=== PATIENT | female | born 2005 | race African-American/Black ===

== ENCOUNTER 2025-04-10 13:12 | Outpatient (AMB) | payer OTHER, SELFPAY ==
--- NOTE | 2025-04-10 13:14 | A.OFFPC_ITS ---
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 Transferring care from Dr Clair Whaley (Child and adolescent medicine ([place], [place])). Medical records have been requested and have not received. Inspector Eyeglass Frames Required: No Peer Counselor: Not Required per policy Accompanied by: Self / Same As Patient Allergies No Known Allergies Allergy (Verified 04/10/25 13:21) Medication List - Last Reconciled 04/10/25 by Lilo Shaw MD hydroxyzine pamoate 25 mg PO BEDTIME olanzapine 2.5 mg PO BEDTIME Tobacco use date assessed: 04/10/25 Dental Screening Dental Screen Date: 04/10/25 Did you have a dental visit in the last 12 months?: No Did you have a dental problem in the last 6 months where you did not have access to dental care?: No Was dental information given to patient?: No HPI HPI Comments History of Present Illness Details The patient is a 19 year old female with PMH of Graves disease, ALEXUS, anorexia nervosa presenting for establishment of care and management of her chronic conditions. She takes olanzapine for severe anxiety and hydroxyzine for sleep, which were prescribed in a prior program. The program was for an eating disorder, specifically anorexia. The patient feels her eating habits have worsened, and she currently consumes approximately 500 calories per day, primarily consisting of fruits. She reports that other foods cause stomach pain and that she has an uncontrollable urge to avoid certain foods due to a belief that there is something wrong with them. The patient was diagnosed with Graves' disease in December and is not currently on any medication for it. She was previously prescribed propranolol but developed a rash with itching that caused her skin to break. - The patient lives with her aunt and un radha. - She reports that her aunt is trying to understand her condition, but other family members are less supportive. - She reports her daily caloric intake i s around 500 calories, mainly from fruits. - For leisure, she plays video games. [facility] Surgical History (Updated 04/10/25 @ 13:22 by DIANE Blake) No pertinent past surgical history Family History (Updated 04/10/25 @ 13:22 by DIANE Blake) Other Substance use disorder Social History (Updated 04/10/25 @ 13:23 by DIANE Blake) Housing: House Alcohol intake: never Patient Tobacco Use Status: Never used Tobacco e-Cigarette/Vaping Use: Currently Using Second Hand Smoke Exposure: No Substance Use Type: Marijuana service: No Current occupational status: unemployed Cognitive needs: No Hearing needs: No Vision needs: Yes (Glasses) Questionnaire PHQ-9 Over the last 2 weeks, how often have you been bothered by any of the following problems? 1. Little interest or pleasure in doing things: more than half the days 2. Feeling down, depressed, or hopeless: more than half the days (Currently in treatment) 3. Trouble falling or staying asleep, or sleeping too much: nearly every day 4. Feeling tired or having little energy: several days 5. Poor appetite or overeating: nearly every day 6. Feeling bad about yourself - or that you are a failure or have let yourself or your family down: several days 7. Trouble concentrating on things, such as reading the newspaper or watching television: nearly every day 8. Moving or speaking so slowly that other people could have noticed. Or the opposite - being so fidgety or restless that you have been moving around a lot more than usual: several days 9. Thoughts that you would be better off or of hurting yourself in some way: several days Total score: 17 Depression Screening Interpretation: Positive Depression Screening Done: Yes Source: Developed by Drs. Donta Chacon, Kika Hernandez, Sang Aparicio and colleagues, with an educational jorge alberto from [employer]. Thrive Questionnaire Date Thrive assessed: 04/10/25 I am a: Patient What is your living situation today?: I have a steady place to live Within the past 12 months, did the food you bought not last and you didn't have the money to get more?: Never true Within the past 12 months, did you worry whether your food would run out before you got money to buy more?: Never true Do you have trouble paying for medicines?: No Do you have trouble getting transportation to medical appointments?: No Do you have trouble paying your heating and electricity bill?: No Do you have trouble taking care of your child, family member or friend?: No Do you have trouble with day-to-day activities such as bathing, preparing meals, shopping, managing finances, etc.?: No Are you currently unemployed and looking for a job?: No Are you interested in more education?: No Please select the resources that you would like help with: None Currently or been in a relationship where the following occur: No concerns reported THRIVE Score: 0 AUDIT C Alcohol Use Questionnaire (AUDIT-C) 1. How often do you have a drink containing alcohol?: Never Total Score: 0 ALEXUS-7 AMB Questionnaire ALEXUS-7 Date ALEXUS - 7 assessed: 04/10/25 Feeling nervous, anxious, or on edge: 2 = More than half the days (Currently in treatment) Not being able to stop or control worryin = Nearly every day Worrying too much about different things: 3 = Nearly every day Trouble relaxin = Nearly every day Being so restless that it is hard to sit still: 2 = More than half the days Becoming easily annoyed or irritable: 3 = Nearly every day Feeling afraid as if something awful might happen: 1 = Several days Total ALEXUS-7 score (0-4 normal; 5-9 mild; 10-14 moderate; 15-21 severe): 17 Source: Developed by Drs. Donta Chacon, Kika Hernandez, Sang Aparicio and colleagues, with an educational jorge alberto from [employer]. Review of Systems Const Details: As per HPI. Physical exam (Primary Care) Vital Signs: Last Vital Signs Temp 97.3 F 04/10/25 13:15 Pulse 128 H 04/10/25 13:15 BP 120/66 04/10/25 13:15 Pulse Ox 96 04/10/25 13:15 Oxygen Delivery Method Room Air 04/10/25 13:15 BMI result Body Mass Index 18.6 Tobacco/Smoking Status: Tobacco use Status Tobacco use date assessed 04/10/25 04/10/25 13:26 Patient Tobacco Use Status Never used Tobacco 04/10/25 13:26 e-Cigarette/Vaping Use Currently Using 04/10/25 13:26 PHQ-9: PHQ-9 Score PHQ-9: Total score 17 04/10/25 13:26 Depression Screening Interpretation: Positive Thrive Assessment: Date of Thrive Assessment Date Thrive assessed 04/10/25 04/10/25 13:14 Currently or been in a relationship where the following occur: No concerns reported Const Other: Pertinent findings are in BOLD GENERAL APPEARANCE NAD, activity normal for age, well developed/ well nourished, no cyanosis, pallor, or diaphoresis. EYES lids/conjunctiva normal. EARS/NOSE/THROAT Mucous membranes moist, nares normal, lips/teeth normal uvula midline without oral pharyngeal erythema, exudate or swelling TMs normal bilaterally. No lymphangitis/lymphedema. HEAD/NECK normocephalic atraumatic, no facial trauma, neck is supple. Enlarged thyroid. RESPIRATORY respiratory effort normal, speaks in full sentences, no tripod position, no accessory muscle use. Lungs clear to auscultation without rhonchi, wheezes, rales CARDIAC Regular rhythm, no edema. Tachycardia. ABDOMINAL Soft, ND/NT. No evidence of fluid wave. No pulsatile masses on exam, rebound tenderness, Jefferson sign or pain over Mcburney's point. MUSCLES/EXTREMITIES No abnormal range of motion, no swelling. SKIN Warm, pink and dry. No rashes, dermatoses, petechiae or lesions. NEUROLOGICAL Speech is clear and appropriate. Normal level of consciousness. Gait and coordination are normal. 5/5 strength in all extremities. Resting tremor. PSYCH Normal mood and affect. Judgement/competence is appropriate Coding Level of Care Code New Pt Level 4 (78797) Diagnoses Eating disorder F50.9 Anxiety F41.9 Graves disease E05.00 Time Spent (min) 45 Assessment & Plan Assessment & Plan (1) Eating disorder: Code(s): F50.9 - Eating disorder, unspecified Category: Medical Plan: - The patient's olanzapine and hydroxyzine prescriptions will be continued. - An urgent referral will be made to psychiatry at [facility] for continued management. (2) Anxiety: Code(s): F41.9 - Anxiety disorder, unspecified Category: Medical Plan: Same as under Eating disorder. Graves disease might be contrinuting to symptoms so we will address underlying causes. Denies SI or HI. Advised the patient to seek immediate help if she feels in danger, or gets ideas of hurting herself. (3) Graves disease: Code(s): E05.00 - Thyrotoxicosis with diffuse goiter without thyrotoxic crisis or storm Category: Medical Plan: - The patient's tachycardia, anxiety, and weight loss are likely attributable to her untreated Graves' disease. - Metoprolol tartrate 25 mg twice daily will be initiated to manage her high heart rate. The patient was advised to start metoprolol once per day and monitor for any rash symptoms. She was instructed to call our clinic in case she develops rash. - Based on current data and Ashley-Wartofsky Point Scale (BWPS) for Thyrotoxicosis: The patient is less likely to have thyropid storm at this time. We will update the scale with more data when available. - A stat referral will be sent to endocrinology for management of her Graves' disease. - The following diagnostics will be ordered: TSH, T4, Thyroid peroxidase antibody, Thyroid ; an EKG; and a thyroid ultrasound. - Follow-up will occur in one week to assess her response to the new medication. Plan I discussed with the patient that her untreated Graves' disease is likely a significant contributor to her symptoms of anxiety, weight loss, and high heart rate. We discussed initiating metoprolol, which is in the same class as propranolol which previously caused her a rash, and I advised her to start with a lower frequency to monitor for any adverse reactions before increasing to the full dose. I emphasized the importance of completing her lab work and EKG today to ensure her safety. I informed her of the urgent referrals to psychiatry and endocrinology for comprehensive care. I encouraged her to communicate with her family for support and reassured her that the clinical team is here to support her. The patient confirmed she does not have any current suicidal or homicidal ideation, and I provided return precautions. Orders: Orders Comprehensive Met. Panel Today Z00.00 - Encounter for general adult medical examination without abnormal findings Vitamin D 25-OH Total Today Z00.00 - Encounter for general adult medical examination without abnormal findings HIV Ab/Ag Today Z00.00 - Encounter for general adult medical examination without abnormal findings TSH reflex Free T4 Today E05.00 - Thyrotoxicosis with diffuse goiter without thyrotoxic crisis or storm, Z00.00 - Encounter for general adult medical examination without abnormal findings US thyroid Today E05.00 - Thyrotoxicosis with diffuse goiter without thyrotoxic crisis or storm, Z00.00 - Encounter for general adult medical examination without abnormal findings Magnesium Today Z00.00 - Encounter for general adult medical examination without abnormal findings ECG 12 lead EKG Today F41.9 - Anxiety disorder, unspecified NM thyroid w uptake Today E05.00 - Thyrotoxicosis with diffuse goiter without thyrotoxic crisis or storm Complete Blood Count no Diff Today Z00.00 - Encounter for general adult medical examination without abnormal findings Lipid Panel Today Z00.00 - Encounter for general adult medical examination without abnormal findings IRON PROFILE Today Z00.00 - Encounter for general adult medical examination without abnormal findings Vitamin B12 and Folate Today D64.9 - Anemia, unspecified, Z00.00 - Encounter for general adult medical examination without abnormal findings Hemoglobin A1c Today Z00.00 - Encounter for general adult medical examination without abnormal findings Hepatitis C Antibody Reflex Today Z00.00 - Encounter for general adult medical examination without abnormal findings Thyroid Peroxidase Antibodies Today E05.00 - Thyrotoxicosis with diffuse goiter without thyrotoxic crisis or storm, Z00.00 - Encounter for general adult medical examination without abnormal findings Thyroid Stimulating Immunoglob Today E05.00 - Thyrotoxicosis with diffuse goiter without thyrotoxic crisis or storm, Z00.00 - Encounter for general adult medical examination without abnormal findings Referrals Psychiatry Referral F50.00 - Anorexia nervosa, unspecified, F50.9 - Eating disorder, unspecified Endocrinology Referral E05.00 - Thyrotoxicosis with diffuse goiter without thyrotoxic crisis or storm Medications: New olanzapine 2.5 mg PO BEDTIME 30 tabs 3RF hydroxyzine pamoate 25 mg PO BEDTIME 30 caps 3RF metoprolol tartrate 25 mg PO BID 60 tabs 3RF
--- OUTSIDE RECORDS SUMMARY | 2025-04-10 13:14 | XMS_ITS | Encounter Summary ---
Author Organization [facility] Address [address] [place] [id number] Phone Care Team Providers Care Brine Room Laborer Name Role Phone Unavailable Primary Care Provider Unavailabl e Reason for Visit * Reason Onset Date Comments ED record review - ADMIT to PICU 01/04/2025 Encounter Details Date Type Department Care Team (Late st Contact Info) Description 01/04/2025 Telephone [facility] - [place] [address] [place] [address] Clair Jhaveri MD [address] [place] [address] ED record review - ADMIT to PICU Social History Tobacco Use Types Packs/Day Years Used Date Smoking Tobacco: Never Smokeless Tobacco: Never Hunger/Food Answer Date Recorded In the last 12 months, did y ou or your family ever eat less than you felt you should because there wasn't enough money for food? No 09/07/2023 Stable Housing Answer Date Recorded Are you worried that in the next 2 months you may not have stable housing? No 09/07/2023 Transportation Concerns Answer Date Rec orded In the last 12 months, have you or your family ever had to go without healthcare because you didn't have a way to get there? No 09/07/2023 Hazards in Home Answer Date Recorded Think about the place you li ve. Do you have problems with any of the following? Pests (mice or roaches), mold, no/not working smoke detectors, water leaks, no window guards. No 2023 Financing Utilities Answer Date Recorde d In the last 12 months, has t he electric, gas, oil, or water company threatened to shut off your services in your home? No 09/07/2023 Safety at Home Answer Date Recorded Are you or your family worried about feeling saf e in your home? No 09/07/2023 Outside Support Answer Date Recorded Do you feel that you need mo re support from other people or programs to help you care for yourself or your family? No 09/07/2023 Understanding Health Concerns Answer Da te Recorded Do you need help understandi ng your or your child's healthcare needs (diagnosis, medications, plan, etc.)? No 09/07/2023 Financing Health Concerns Answer Date R ecorded In the last 12 months, was t here a time when your child needed to see a doctor or get medications or supplies but could not because of cost? No 09/07/2023 Missing School or Work Answer Date Mazin rded Did you or your child miss s chool or work because of a health problem that could have been avoided? No 09/07/2023 Child Education Answer Date Recorded Do you have concerns about y our/your child's learning or behavior in school, preschool, or daycare? No 09/07/2023 Comments Unknown Sex and Gender Information Value Date Recorded Sex Assigned at Not on file Legal Sex Female 6:37 PM EDT Gender Identity Female 02/28/2021 7:29 AM EST Sexual Orientation Straight 02/04/2020 10 :54 AM EDT documented as of this encounter Miscellaneous Notes * Telephone Encounter - Jeannine Coats LPN - 01/04/2025 9:34 AM EDT Patient admitted: 01/03/25 Presenting Symptoms: chest palpitations Diagnosis: palpitations Medications prescribed: 1L fluids in ER Additional information: - Consult done with endocrinology, Dr. Cates who advised patient be admitted and will give tx recommendations. -Labs with potential concern for hyperthyroid, possible thyroid storm. TSH below assay, free T-46.38 -ultrasound does not have have any obv. Reduced ejection fraction though she has some scattered B-lines to suggest possibly some mild edema which would be consistent with her symptoms. Does not have obvious right heart strain. Clinical update: will await discharge for update Chart forwarded to: PCP for review as FYI Original document is in media documented in this encounter Plan of Treatment Not on file documented as of this encounter Goals Goal Patient Goal Type Associated Problems Recent Progress Patient-Stated? Author Transition to adult provider Lifestyle Lety Murillo Note: 10/31/24 still has [employer] Pt needs to change insurance with [facility] first. 01/02/23 Pat's PCP doesn't accept [facility]. Gave [facility] new pt line to call and schedule [phone]. Need to change [facility] to [facility]. [facility] had appts in June 2024. Pat to call and get back to us for next steps. AK spoke to Pat who wants to see if Neal can go to her PCP office. Patient will have/get mental health support Care Plan Patient/caregiver requires assistnace schuduling behavioral health appointments Lety Murillo Patient will establish with Adult PCP Care Plan Patient needs to connect with adult PCP No Lety Zacarias documented as of this encounter Visit Diagnoses Not on filedocumented in this encounter Additional Health Concerns Active Problems Noted Date Diagnosed Date Patient/caregiver requires a ssistnace schuduling behavioral health appointments 04/21/2022 Patient needs to connect with adult PCP 12/08/19 24 documented as of this encounter
--- OUTSIDE RECORDS SUMMARY | 2025-04-10 13:14 | XMS_ITS | Encounter Summary ---
Author Organization [facility] Address [address] [place] [address] Phone Care Team Providers Care Line Supervisor Name Role Phone Unavailable Primary Care Provider Unavailabl e Encounter Details Date Type Department Care Team (Late st Contact Info) Description 11/04/2024 Telephone Pediatric [facility] Ad[facility]cent Medicine - [place] [address] [place] [address] Clair Jhaveri MD [address] [place] [address] Social History Tobacco Use Types Packs/Day Years [...] AM EDT documented as of this encounter Plan of Treatment Not on file documented as of this encounter Goals Goal Patient Goal Type Associated Problems Recent Progress Patient-Stated? Author Transition to adult provider Lifestyle No Lety Zacarias Note: 10/31/24 still has [facility] Pt needs to change insurance with [facility] first. 01/02/23 Pat's PCP doesn't accept [facility]. Gave [facility] new pt line to call and schedule [phone]. Need to change [facility] to [facility]. [place] had appts in June 2024. Pat to call and get back to us for next steps. AK spoke to Pat who wants to see if Neal can go to her PCP office. Patient will have/get mental health support Care Plan Patient/caregiver requires assistnace schuduling behavioral health appointments No Lety Zacarias Patient will establish with Adult PCP Care Plan Patient needs to connect with adult PCP No Lety Zacarias documented as of this encounter Visit Diagnoses Diagnosis Dysmenorrhea documented in this encounter Additional Health Concerns Active Problems Noted Date Diagnosed Date Patient/caregiver requires a ssistnace [facility] behavioral [facility] appointments 04/21/2022 Patient needs to connect with adult PCP 12/08/19 24 documented as of this encounter
--- OUTSIDE RECORDS SUMMARY | 2025-04-10 13:14 | XMS_ITS | Clinical Summary ---
Author Organization [facility] Address [address] [place] [phone] Phone Care Team Providers Care Advice Nurse Name Role Phone Unavailable Primary Care Provider Unavailabl e Allergies No known active allergies Medications sertraline 100 MG tabletIndication s:Depression, unspecified depression type Take 1.5 tablets (150 mg total) by mouth every morning. 135 tablet 07/14/2023 Active naproxen sodium 275 MG tabletIndication s:Dysmenorrhea Take 2 tabs at first sign of cramps, then 1 tab po every 8 hrs until cramps subside 60 tablet 2 09/07/2023 Active Active Problems Patient Care Coordination No te Formatting of this note migh t be different from the original. Therapist- Tereza Kim [phone] I[facility]- [facility] Problem Noted Date Diagnosed Date Generalized anxiety disorder 07/08/2023 Deliberate self-cutting 10/21/2021 Severe episode of recurrent major depressive disorder, without psychotic features 10/21/2021 Anorexia nervosa 09/03/2021 Overview (06/15/2023): Initial Dr. Andrews appt 04/08/23. Pt seen for phos supplementation for the following few days. At recheck visit on 04/12 - pt found to be down more wt, admitted to [facility] on 06/13 for medical stabilization. Pt was both restricting calories as well as purging. At time of [facility] admit, pt had low phos that needed stabilizing. Assessment & Plan (08/17/2023 11:05 PM EDT): Pt had been stable and regained wt, holding at her previous wt and generally seemed in a good place upon re-entry to school. Now is sliding back into old behaviors, wt is down 2# from a month ago. Will contact [facility] Eating disorder program. Assessment & Plan (06/15/2023 4:29 PM EST): Pt completed inpt stay at [facility] then did inpatient at [facility] 04/19-05/07/23. She was transitioned to [facility] from home - that lasted until 06/08. She was not participating so they unenrolled her. She is doing well, back to school this week, wt is increasing. Still orthostatic but feeling well and labs normal. Attention deficit disorder 03/26/2021 Overview (03/26/2021): Diagnosed as inpt 03/08- started on Concerta. PTSD (post-traumatic stress disorder) 03/26/2021 Counseling and coordination of care 01/26/2021 Resolved Problems Problem Noted Date Diagnosed Date Resolved Date Depression 03/26/2021 10/21/2021 Overview (03/26/2021): Pt officially diagnosed. Has been inpt 01/06 and 03/08, did PHP 02/05. Currently receiving meds through [facility] on Prazosin and Sertraline. Has 2 therapists. Recurrent major depressive d isorder, in partial remission 01/10/2019 02/04/2020 Encounters Date Type Department Care Team Description 03/05/2025 Erroneous Telephone Encounter Pediatric And Adolescent Medicine - [address] [address] Clair Jhaveri MD 02/01/2025 5:51 PM EDT - 02/01/2025 6:46 PM EDT Emergency [facility] - Patient Ping from Last 3 Months Immunizations Immunization Administration Dates Next Due DTaP 5 07/22/2010, 0,01/10/2006,11/16,2005 HPV Vaccine 9 Valent 01/10/2019,12/14/2017 Hep A, ped/adol 05/19/2009,10/10/2006 Hep B, ped/adol 01/10/2019, 6,2005,10/07,2005 Hib (PRP-T) 05/19/2009, 6,2005,10/07 IPV 07/22/2010, 0,01/10/2006,10/07 Influenza, injectable, quadr ivalent, preservative free 03/26/2021,02/04/2020,01/10/2019 Influenza, injectable, triva lent, preservative free 02/12/2010,05/24/2006 MMR 06/18/2010,10/10/2006 Meningococcal B Trumenba 09/07/2023 Meningococcal Conj (Menactra) MCV4P 10/18/2016 Meningococcal Conj (Menveo) MCV4O 07/22/2022 Pneumococcal Conjugate 05/19/2009,01/10/2006, Tdap 10/18/2016 Varicella 06/18/2010,10/10/2006 Family History Medical History Relation Name Comments Diabetes Father Diabetes Maternal Grandmother Hyperlipidemia Maternal Grandmother Hypertension Maternal Grandmother Alcoholism Mother Relation Name Status Comments Father Maternal Grandmother Mother Social History Tobacco Use Types Packs/Day Years [...] Orientation Straight 02/04/2020 10 :54 AM EDT Last Filed Vital Signs Vital Sign Reading Time Taken Comments Blood Pressure 104/62 11/09/2023 2:47 PM EDT Pulse 92 11/09/2023 2:47 PM EDT Temperature 36.7 C (98 F) 11/09/2023 2:22 PM EDT Respiratory Rate 18 11/09/2023 2:22 PM EDT Oxygen Saturation 98% 11/09/2023 2:47 PM EDT Inhaled Oxygen Concentration - - Weight 58.6 kg (129 lb 4 oz) 11/09/2023 2:22 PM EDT Height 173.3 cm (5' 8.23 ) 11/09/2023 2:22 PM ED T Body Mass Index 19.52 11/09/2023 2:22 PM EDT Body Mass Index Percentile 25.04% 11/09/2023 2:2 2 PM EDT Growth Chart: CDC (Girls, 2- 20 Years) Plan of Treatment Health Maintenance Due Date Last Done Comments Men B Vaccine (2 of 2 - Trum enba SCDM 2-dose series) 03/09/2024 09/07/2023 Influenza Vaccines (#1) 2024 03/26/20 21, 02/04/2020, 01/10/2019, Additional history exists COVID-19 Vaccine (3 - 2024-2 6 season) 2024 09/20/2020, 08/30/2020 DTaP,Tdap,and Td Vaccines (7 - Td or Tdap) 10/18/2026 10/18/2016, 07/22/2010, 05/19/2009, Additional history exists HIB Vaccines Completed 05/19/2009, 12/18, 2005, Additional history exists Hepatitis A Vaccines Completed 05/19/2009, 10/11/19 07 Pneumococcal Vaccine Completed 05/19/2009, 01/10/2006, 2005 MMR Vaccines Completed 06/18/2010, 10/10/2006 Varicella Vaccines Completed 06/18/2010, 10/10/2006 IPV Vaccines Completed 07/22/2010, 04/2009, 01/10/2006, Additional history exists HPV Vaccines Completed 01/10/2019, 12/14/2017 Hepatitis B Vaccines Completed 01/10/2019, 01/10/2006, 2005, Additional history exists Meningococcal Vaccine Completed 07/22/2022, 017 Goals Goal Patient Goal Type Associated Problems Recent Progress Patient-Stated? Author Transition to adult provider Lifestyle No Lety Zacarias Note: 10/31/24 still has [facility] Pt needs to change insurance with [facility] first. 01/02/23 Pat's PCP doesn't accept [facility]. Gave [facility] new pt line to call and schedule [phone]. Need to change [facility] to [facility]. [place] had appts in June 2024. Pat to [...] needs to connect with adult PCP No Rell, Lety Procedures * Due to [employer] law, this organization might not be sharing sensitive test results. Procedure Name Priority Date/Time Associated Diagnosis Comments CHLAMYDIA AND GONORRHEA, AMPLIFIED Routine 09/07/2023 3:15 PM EDT Routine screening for STI (sexually transmitted infection) from Last 3 Months or Most Recently Relevant to Health Maintenance Results * Due to [facility] law, this organization might not be sharing sensitive test results. * Chlamydia and Gonorrhoea, Amplified (09/07/2023 3:15 PM EDT) C trach MANNIE Negative Negative [facility] N gonorrhoeae MANNIE Negative Negative [facility] Urine (Urine) 09/07/2023 3:1 5 PM EDT 09/07/2023 Comment:Urine URINE Narrative [facility] - 09/09/2023 9:08 AM EDT Performed at: 01 - [facility] [address], [address], [place], [place] [id number] Supervisor Boarding: Colten Ruiz MD, Phone: [phone] Clair Jhaveri MD LAB MICROBIOLOGY - GENERAL ORDER KHALIF Final Result Performing Organization Address City/State/[facility] Co de Phone Number [facility] [address] [place] [address] from Last 3 Months or Most Recently Relevant to Health Maintenance Additional Health Concerns Active Problems Noted Date Diagnosed Date Patient/caregiver requires a ssistnace [facility] behavioral health appointments 04/21/2022 Patient needs to connect with adult PCP 12/08/19 24
--- OUTSIDE RECORDS SUMMARY | 2025-04-10 13:14 | XMS_ITS | Encounter Summary ---
Author Organization [facility] Address [address] [place] [id number] Phone Care Team Providers Care Press Clipper Name Role Phone Unavailable Primary Care Provider Unavailabl e Encounter Details Date Type Department Care Team (Late st Contact Info) Description 11/24/2010 Conversion Encounter Pediatric And Adolescent Medicine - [address] [address] Social History Tobacco Use Types Packs/Day Years Used Date Smoking Tobacco: Never Assessed Comments Unknown Sex and Gender Information Value Date Recorded Sex Assigned at Not on file Legal Sex Female 6:37 PM EDT Gender Identity Female 02/28/2021 7:29 AM EST Sexual Orientation Straight 02/04/2020 10 :54 AM EDT documented as of this encounter Plan of Treatment Not on file documented as of this encounter Visit Diagnoses Not on filedocumented in this encounter
--- OUTSIDE RECORDS SUMMARY | 2025-04-10 13:14 | XMS_ITS ---
Care Plan Created on: April 10, 2025 Neal Valles : 2005 Sex: Female Author Organization [facility] Address [address] [place] [address] Phone Care Team Providers Care Prize Jacker Name Role Phone Unavailable Primary Care Provider Unavailabl e Active Problems Patient Care Coordination No te Formatting of this note migh t be different from the original. Therapist- Tereza Kim [phone] IHT- Clair and Yue Problem Noted Date Diagnosed Date Generalized anxiety disorder 07/08/2023 Deliberate self-cutting 10/21/2021 Severe episode of recurrent major depressive disorder, without psychotic features 10/21/2021 Anorexia nervosa 09/03/2021 Overview (06/15/2023): Initial Dr. Andrews appt 04/08/23. Pt seen for phos supplementation for the following few days. At recheck visit on 04/12 - pt found to be down more wt, admitted to [facility] on 06/13 for medical stabilization. Pt was both restricting calories as well as purging. At time of [facility] admit, pt had low phos that needed stabilizing. Assessment & Plan (08/17/2023 11:05 PM EDT): Pt had been stable and regained wt, holding at her previous wt and generally seemed in a good place upon re-entry to school. Now is sliding back into old behaviors, wt is down 2# from a month ago. Will contact [facility] Eating disorder program. Assessment & Plan (06/15/2023 4:29 PM EST): Pt completed inpt stay at [facility] then did inpatient at [facility] 04/19-05/07/23. She was transitioned to [facility] from home - that lasted until [...] did PHP 02/05. Currently receiving meds through [facility] on Prazosin and Sertraline. Has 2 therapists. Recurrent major depressive d isorder, in partial remission 01/10/2019 02/04/2020 Additional Health Concerns Active Problems Noted Date Diagnosed Date Patient/caregiver requires a ssistnace schuduling behavioral health appointments 04/21/2022 Patient needs to connect with adult PCP 12/08/19 24 Goals Goal Patient Goal Type Associated Problems Recent Progress Patient-Stated? Author Transition to adult provider Lifestyle No Lety Zacarias Note: 10/31/24 still has [employer] Pt needs to change insurance with [facility] first. 01/02/23 Pat's PCP doesn't accept [facility]. Gave [facility] new pt line to call and schedule [phone]. Need to change [employer] to [facility]. [place] had appts in June 2024. Pat to [...] Patient needs to connect with adult PCP Lety Murillo Interventions Care Plan Interventions Intervention Entry Date Outcome Transition to Adult PCP 12/08/2023 Note: Related Goals and Interventions Goal Associated Intervent ions Patient will establish with Adult PCP Tr ansition to Adult PCP
--- OUTSIDE RECORDS SUMMARY | 2025-04-10 13:14 | XMS_ITS | Encounter Summary ---
Author Organization [facility] Address [address] [place] [address] Phone Care Team Providers Care Flat Screen Worker Name Role Phone Unavailable Primary Care Provider Unavailabl e Reason for Visit * Reason Comments Med Refill Encounter Details Date Type Department Care Team (Late st Contact Info) Description 11/03/2024 Refill Pediatric And Adolescent Medicine - [address] [address] Clair Jhaveri MD [address] [place] [id number] Dysmenorrhea Social History Tobacco Use Types Packs/Day Years [...] encounter Miscellaneous Notes * Telephone Encounter - Kerry WinterTISH - 11/05/2024 5:34 PM EDT Refill requested for Anasty???s: Naproxen 275 mg Refill request source: [facility] This medication was last refilled on 09/14/24. Last medication check or well visit: 09/07/23 Next appointment scheduled on none. An office visit is not recommended. If visit recommended, message sent to appointment pool. [facility] - [place], [place] - [address] [facility] [id number] [id number] - [place], [place] - [address] [facility] [id number] PCP: Clair Jhaveri MD documented in this encounter Plan of Treatment Not on file documented as of this encounter Goals Goal Patient Goal Type Associated Problems Recent Progress Patient-Stated? Author Transition to adult provider Lifestyle Lety Murillo Note: 10/31/24 still has [employer] Pt needs to change insurance with [facility] first. 01/02/23 Pat's PCP doesn't accept [facility]. Gave [facility] new pt line to call and schedule [phone]. Need to change [employer] to [facility]. [place] had appts in June 2024. Pat to call and get back to us for next steps. [place] spoke to Pat who wants to see if Neal can go to her PCP office. Patient will have/get mental health support Care Plan Patient/caregiver requires assistnace sch[facility] behavioral health appointments Lety Murillo Patient will establish with Adult PCP Care Plan Patient needs to connect with adult PCP No Lety Zacarias documented as of this encounter Visit Diagnoses Diagnosis Dysmenorrhea documented in this encounter Additional Health Concerns Active Problems Noted Date Diagnosed Date Patient/caregiver requires a ssistnace schudmaximo behavioral health appointments 04/21/2022 Patient needs to connect with adult PCP 12/08/19 24 documented as of this encounter
[2025-04-10 13:15] VITALS: BP 120/66; PULSE 128; TEMP 36.3; O2SAT 96; BMI 18.6
== END 2025-04-10 13:56 | disposition home or self-care (01) ==
LOC: HO.HMCH 13:12
PROVIDERS: Visit Provider Internal Medicine
DX: F50.9 Eating disorder, unspecified (principal); F41.9 Anxiety disorder, unspecified; E05.00 Thyrotoxicosis with diffuse goiter without thyrotoxic crisis or storm

== ENCOUNTER 2025-04-13 18:51 | Emergency (ER) | payer OTHER, SELFPAY ==
[2025-04-13 18:58] VITALS: BP 158/71; PULSE 123; RESP 18; TEMP 36.3; O2SAT 94; BMI 19.1
--- NOTE | 2025-04-13 19:01 | ED_ITS ---
HPI - General Adult General Chief complaint: Recheck/Abnormal Lab/Rx Stated complaint: abnormal labs Related Data Previous Rx's ?Medication ?Instructions ?Recorded hydroxyzine pamoate 25 mg capsule 25 mg PO BEDTIME #30 caps 04/10/25 metoprolol tartrate 25 mg tablet 25 mg PO BID #60 tabs 04/10/25 olanzapine 2.5 mg tablet 2.5 mg PO BEDTIME #30 tabs 1 06/11/24 Allergies Allergy/AdvReac Type Severity Reaction Status Date / Time No Known Allergies Allergy Verified 04/13/25 19:02 [facility] Past Medical History Surgical History (Updated 04/10/25 @ 13:22 by DIANE Blake) No pertinent past surgical history Family History Family History (Updated 04/10/25 @ 13:22 by DIANE Blake) Other Substance use disorder Social History Social History (Updated 04/10/25 @ 13:23 by DIANE Blake) Housing: House Alcohol intake: never Patient Tobacco Use Status: Never used Tobacco e-Cigarette/Vaping Use: Currently Using Second Hand Smoke Exposure: No Substance Use Type: Marijuana Advance Directives: No Advance Directives Information Provided: No service: No Current occupational status: unemployed Cognitive needs: No Hearing needs: No Vision needs: Yes (Glasses) Physical Exam ED Vital Signs: BMI result Body Mass Index 19.1 Course Course Course Narrative: CESIA, this is a rapid medical exam performed by Varun Quezada please refer to primary provider for complete H&P- 19-year-old female presents for evaluation of Graves disease. She reports that she was previously on methimazole and propranolol but stopped these medications about 2 months ago due to a side effect of rashes. She feels that her thyroid is acting up. Plan for labs including a TSH with reflex T4 Medical Decision Making Lab Data 04/13/25 19:46 04/13/25 19:46 Labs: Lab Results 04/13/25 Range/Units 19:46 WBC 7.0 (4.8-10.8) X10*3/uL RBC 4.42 (4.20-5.50) X10*6/uL Hgb 13.3 (12.0-16.0) g/dl Hct 39.6 (37.0-47.0) % MCV 89.6 (80.0-98.0) fL MCH 30.1 (27.0-33.0) pg MCHC 33.6 (31.0-35.0) g/dl RDW 12.6 (11.0-16.0) % Plt Count 339 (160-400) X10*3/uL MPV 9.1 L (9.4-12.3) fL Immature Gran % (Auto) 0.1 (0.0-0.4) % Neut % (Auto) 58.0 (45-73) % Lymph % (Auto) 26.6 (20-40) % [place] % (Auto) 8.3 (2-11) % Eos % (Auto) 6.6 H (0-4) % Baso % (Auto) 0.4 (0-2) % Lymph # (Auto) 1.9 (1.2-4.9) X10*3/uL [place] # (Auto) 0.6 (0.1-1.2) X10*3/uL Eos # (Auto) 0.5 H (0.0-0.4) X10*3/uL Baso # (Auto) 0.0 (0.0-0.2) X10*3/uL Abs Immat Gran (auto) 0.01 (0.00-0.03) X10*3/uL Absolute Neuts (auto) 4.1 (2.0-8.3) x10*3/uL Absolute Nucleated RBC 0.000 (0.0-0.012) X10*3/uL Nucleated RBC % (auto) 0.0 (0.0-0.2) /100WBC Sodium 139 (135-145) mmol/L Potassium 4.0 (3.3-5.1) mmol/L Chloride 108 (96-108) mmol/L Carbon Dioxide 22 (22-29) mmol/L Anion Gap 13 (12-20) BUN 14 (9-16) mg/dL Creatinine 0.54 (0.5-1.4) mg/dL Estim Creat Clear Calc 150.5 Estimated GFR > 60 Random Glucose 115 (60-115) mg/dL Calcium 9.3 (8.4-10.2) mg/dL Total Bilirubin 0.2 (0.0-1.0) mg/dL AST 41 H (5-31) U/L ALT 61 H (0-31) U/L Alkaline Phosphatase 122 H (39-117) U/L Total Protein 7.1 (6.5-8.0) g/dL Albumin 3.9 (3.5-5.0) g/dL TSH < 0.01 L (0.32-4.0) uIU/mL Free T4 2.19 H (0.71-1.85) ng/dL Discharge Plan Discharge Clinical Impression: Hyperthyroidism Patient Disposition: Left W/O Completing Treatment Prescriptions: No Action olanzapine 2.5 mg tablet 2.5 mg PO BEDTIME Qty: 30 3RF hydroxyzine pamoate 25 mg capsule 25 mg PO BEDTIME Qty: 30 3RF metoprolol tartrate 25 mg tablet 25 mg PO BID Qty: 60 3RF Discharge Date/Time: 04/13/25 23:07
[2025-04-13 19:52] LABS: Hematocrit 39.6 % (37.0-47.0); Hemoglobin 13.3 g/dl (12.0-16.0); Imm Gran Abs Auto 0.01 X10*3/uL (0.00-0.03); Imm Gran Pct Auto 0.1 % (0.0-0.4); Lymphocytes Absolute Auto 1.9 X10*3/uL (1.2-4.9); MANUAL DIFF FLAG NO; Mean Corpuscular HGB Conc 33.6 g/dl (31.0-35.0); Mean Corpuscular Hemoglobin 30.1 pg (27.0-33.0); Mean Corpuscular Volume 89.6 fL (80.0-98.0); NRBC Abs Auto 0.000 X10*3/uL (0.0-0.012); NRBC Pct Auto 0.0 /100WBC (0.0-0.2); Platelet Count 339 X10*3/uL (160-400); Red Blood Count 4.42 X10*6/uL (4.20-5.50); White Blood Count 7.0 X10*3/uL (4.8-10.8)
[2025-04-13 20:16] LABS: Alanine Aminotransferase 61 U/L (0-31); Albumin Level 3.9 g/dL (3.5-5.0); Alkaline Phosphatase 122 U/L (39-117); Anion Gap 13 (12-20); Aspartate Amino Transferase 41 U/L (5-31); Blood Urea Nitrogen 14 mg/dL (9-16); Calcium 9.3 mg/dL (8.4-10.2); Carbon Dioxide 22 mmol/L (22-29); Chloride 108 mmol/L (96-108); Creatinine Clr Calc Pharmacy 150.5; Estimated Glomerular Filt Rate > 60; Potassium 4.0 mmol/L (3.3-5.1); Sodium 139 mmol/L (135-145); Total Protein 7.1 g/dL (6.5-8.0)
[2025-04-13 21:08] LABS: Free T4 (Free Thyroxine) 2.19 ng/dL (0.71-1.85)
--- OUTSIDE RECORDS SUMMARY | 2025-04-13 23:05 | XMS_ITS | Clinical Summary ---
Author Organization [facility] Address [address] [place] [address] Phone Care Team Providers Care Noc Analyst Name Role Phone Unavailable Primary Care Provider [...] different from the original. Therapist- Tereza Kim [phone] IHT- Clair and Yue Problem Noted Date Diagnosed Date Generalized anxiety disorder 07/08/2023 Deliberate self-cutting 10/21/2021 Severe episode of recurrent major depressive disorder, without psychotic features 10/21/2021 Anorexia nervosa 09/03/2021 Overview (06/15/2023): Initial Dr. Andrews appt 04/08/23. Pt seen for phos supplementation for the following few days. At recheck visit on 04/12 - pt found to be down more wt, admitted to [facility] on 06/13 for medical stabilization. Pt was both restricting calories as well as purging. At time of [facility] admit, pt had low phos that needed stabilizing. Assessment & Plan (08/17/2023 11:05 PM EDT): Pt had been stable and regained wt, holding at her previous wt and generally seemed in a good place upon re-entry to school. Now is sliding back into old behaviors, wt is down 2# from a month ago. Will contact [facility] Eating disorder program. Assessment & Plan (06/15/2023 4:29 PM EST): Pt completed inpt stay at [facility] then did inpatient at [place] 04/19-05/07/23. She was transitioned to [facility] from home - that lasted until [...] did PHP 02/05. Currently receiving meds through [facility] on Prazosin and Sertraline. Has 2 therapists. Recurrent major depressive d isorder, in partial remission 01/10/2019 02/04/2020 Encounters Date Type Department Care Team Description 03/05/2025 Erroneous Telephone Encounter Pediatric And Adolescent Medicine - [address] [address] Clair Jhaveri MD 02/01/2025 5:51 PM EDT - 02/01/2025 6:46 PM EDT Emergency [facility] - Patient Ping from Last 3 [...] 09/07/2023 Missing School or Work Answer Date Maizn rded Did you or your child miss [...] 01/02/23 Pat's PCP doesn't accept [facility]. Gave [facility] new pt line to call and schedule [phone]. [facility] to [facility]. [place] had appts in June 2024. Pat to [...] needs to connect with adult PCP No Rlel, Lety Procedures * Due to [place] [employer] law, this organization might not be sharing sensitive test results. Procedure Name Priority Date/Time Associated Diagnosis Comments CHLAMYDIA AND GONORRHEA, AMPLIFIED Routine 09/07/2023 3:15 PM EDT Routine screening for STI (sexually transmitted infection) from Last 3 Months or Most Recently Relevant to Health Maintenance Results * Due to [facility] law, this organization might not be sharing sensitive test results. * Chlamydia and Gonorrhoea, Amplified (09/07/2023 3:15 PM EDT) C trach MANNIE Negative Negative [facility] N gonorrhoeae MANNIE Negative Negative [facility] Urine (Urine) 09/07/2023 3:1 5 PM EDT 09/07/2023 Comment:Urine URINE Narrative [facility] - 09/09/2023 9:08 AM EDT Performed at: 01 - [facility] [address], [address], [place], [place] [id number] Nitrocellulose Maker: Colten Ruiz MD, Phone: [phone] Clair Jhaveri MD LAB MICROBIOLOGY - GENERAL ORDER KHALIF Final Result Performing Organization Address City/State/[facility] Co de Phone Number [facility] [address] [place] [address] from Last 3 Months or Most Recently Relevant to Health Maintenance Additional Health Concerns Active Problems Noted Date Diagnosed Date Patient/caregiver requires a ssistnace [facility] behavioral [facility] appointments 04/21/2022 Patient needs to connect with adult PCP 12/08/19 24
--- OUTSIDE RECORDS SUMMARY | 2025-04-13 23:05 | XMS_ITS | Encounter Summary ---
Author Organization [facility] Address [address] [place] [address] Phone Care Team Providers Care Sex Worker Or Escort Name Role Phone Unavailable Primary Care Provider Unavailabl e Encounter Details Date Type Department Care Team (Late st Contact Info) Description 11/24/2010 Conversion Encounter Pediatric And Adolescent Medicine - [address] [address] Social History Tobacco Use Types Packs/Day Years [...]
--- OUTSIDE RECORDS SUMMARY | 2025-04-13 23:05 | XMS_ITS | Encounter Summary ---
Author Organization [facility] Address [address] [place] [address] Phone Care Team Providers Care Pastry Cook Apprentice Name Role Phone Unavailable Primary Care Provider Unavailabl e Reason for Visit * Reason Comments Med Refill Encounter Details Date Type Department Care Team (Late st Contact Info) Description 11/03/2024 Refill Pediatric And Adolescent Medicine - [address] [address] Clair Jhaveri MD [address] [place] [address] Dysmenorrhea Social History Tobacco Use Types Packs/Day [...] Anasty???s: Naproxen 275 mg Refill request source: [employer] This medication was last refilled on 09/14/24. Last medication check or well visit: 09/07/23 Next appointment scheduled on none. An office visit is not recommended. If visit recommended, message sent to appointment pool. [facility] - [place], [place] - [address] [facility] [address] [id number] [place], [place] - [address] [facility]. [facility] [address] PCP: Clair Jhaveri MD documented in this encounter Plan of Treatment Not on file documented as of this encounter Goals Goal Patient Goal Type Associated Problems Recent Progress Patient-Stated? Author Transition to adult provider Lifestyle Lety Murillo Note: 10/31/24 still has [facility] Pt needs to change insurance with [facility] first. 01/02/23 Pat's PCP doesn't accept [facility]. Gave [facility] new pt line to call and schedule [phone]. [facility]. [...]
--- OUTSIDE RECORDS SUMMARY | 2025-04-13 23:05 | XMS_ITS | Encounter Summary ---
Author Organization [facility] Address [address] [place] [address] Phone Care Team Providers Care Healthcare Manager Name Role Phone Unavailable Primary Care Provider Unavailabl e Encounter Details Date Type Department Care Team (Late st Contact Info) Description 11/04/2024 Telephone Pediatric And Adolescent Medicine - [place] [address] [place] [address] Clair Jhaveri MD [address] [place] [address] Social History Tobacco Use Types [...] No Lety Zacarias Note: 10/31/24 still has [facility] Pt needs to change insurance with [facility] first. 01/02/23 Pat's PCP doesn't accept [facility]. Gave [facility] new pt line to call and schedule [phone]. [facility]. [place] had appts in June 2024. Pat to [...]
--- OUTSIDE RECORDS SUMMARY | 2025-04-13 23:05 | XMS_ITS | Encounter Summary ---
Author Organization [facility] Address [address] [place] [address] Phone Care Team Providers Care Medical Radiation Dosimetrist Name Role Phone Unavailable Primary Care Provider Unavailabl e Reason for Visit * Reason Onset Date Comments ED record review - ADMIT to PICU 01/04/2025 Encounter Details Date Type Department Care Team (Late st Contact Info) Description 01/04/2025 Telephone Pediatric And Adolescent Medicine - [place] [address] [place] [address] Clair Jhaveri MD [address] [place] [address] ED record review - ADMIT to PICU [...] 01/02/23 Pat's PCP doesn't accept [facility]. Gave [facility] new pt line to call and schedule [phone]. [facility]. [place] had appts in June 2024. Pat to [...]
--- OUTSIDE RECORDS SUMMARY | 2025-04-13 23:05 | XMS_ITS ---
Care Plan Created on: April 13, 2025 Neal Valles : 2005 Sex: Female Author Organization [facility] Address [address] [place] [address] Phone Care Team Providers Care Display Card Writer Name Role Phone Unavailable Primary Care Provider Unavailabl e Active Problems Patient Care Coordination No te Formatting of this note migh t be different from the original. Therapist- Tereza Kim [phone] IHT- Clair and Yue Problem Noted Date Diagnosed Date Generalized anxiety disorder 07/08/2023 Deliberate self-cutting 10/21/2021 Severe episode of recurrent major depressive disorder, without psychotic features 10/21/2021 Anorexia nervosa 09/03/2021 Overview (06/15/2023): Initial Dr. Andrews appt 04/08/23. Pt seen for phos supplementation for the following few days. At recheck visit on 04/12 - pt found to be down more wt, admitted to [facility] on 06/13 for medical stabilization. Pt was both restricting calories as well as purging. At time of [facility] admit, pt had low phos that needed stabilizing. Assessment & Plan (08/17/2023 11:05 PM EDT): Pt had been stable and regained wt, holding at her previous wt and generally seemed in a good place upon re-entry to school. Now is sliding back into old behaviors, wt is down 2# from a month ago. Will contact [facility] Eating disorder program. Assessment & Plan (06/15/2023 4:29 PM EST): Pt completed inpt stay at [facility] then did inpatient at [place] 04/19-05/07/23. She was transitioned to [facility] from home - that lasted until 06/08. [...] did PHP 02/05. Currently receiving meds through [facility] on Prazosin and Sertraline. Has 2 therapists. [...] 01/02/23 Pat's PCP doesn't accept [facility]. Gave [facility] new pt line to call and schedule [phone]. [facility]. [place] had appts in June 2024. Pat to [...]
== END 2025-04-13 23:07 | disposition left against medical advice (07) ==
LOC: HO.ED 23:03
PROVIDERS: Physician Assistant; Emergency Provider Emergency Medicine; PCP Internal Medicine
DX: E05.90 Thyrotoxicosis, unspecified without thyrotoxic crisis or storm (principal)
CPT/HCPCS: 36415; 80053; 84439; 84443; 85025; 99281; 99283

== ENCOUNTER 2025-04-15 17:42 | Emergency (ER) | payer OTHER, SELFPAY ==
[2025-04-15 17:53] VITALS: BP 115/60; PULSE 93; RESP 18; TEMP 36.1; O2SAT 98; BMI 18.4
--- NOTE | 2025-04-15 17:55 | ED_ITS ---
HPI - General Adult General Chief complaint: General Medical Stated complaint: unstable heart rate Time Seen by Provider: 04/15/25 21:53 Source: patient, RN notes reviewed and old records reviewed Mode of arrival: ambulatory Limitations: no limitations History of Present Illness ED Provider: Damien STEVENS narrative: 19-year-old female with a past medical history significant for Graves disease presents for evaluation of hyperthyroidism. The patient reports that for the last 4 days she has noticed increased heart rate. She was seen by her primary doctor on [place], 5 days ago. She was started on metoprolol 25 mg b.i.d. pain She is also on methimazole 10 mg daily. She reports weight loss, increased heart rate and anxiety. She denies any chest pain, fevers, chills, cough, shortness of breath Related Data Previous Rx's ?Medication ?Instructions ?Recorded hydroxyzine pamoate 25 mg capsule 25 mg PO BEDTIME #30 caps 04/10/25 metoprolol tartrate 25 mg tablet 25 mg PO BID #60 tabs 04/10/25 olanzapine 2.5 mg tablet 2.5 mg PO BEDTIME #30 tabs 1 06/11/24 Allergies Allergy/AdvReac Type Severity Reaction Status Date / Time No Known Allergies Allergy Verified 04/15/25 17:55 Review of Systems 2 Constitutional: Constitutional: Denies body ache(s), Denies chills, Denies fever(s) and Denies frequent falls Eyes: Eyes: Denies irritation ENT: Denies vertigo Cardiovascular: Cardiovascular: Denies chest pain, Denies syncope, Reports rapid heart rate, Denies dyspnea and Denies dyspnea on exertion Respiratory: Respiratory: Denies dyspnea and Denies dyspnea on exertion Gastrointestinal: Gastrointestinal: Denies abdominal pain, Denies nausea and Denies vomiting Musculoskeletal: Musculoskeletal: Denies back pain Integumentary/Breasts: Skin/Breast: Denies rash Neurologic: Denies vertigo, Denies syncope and Denies frequent falls [facility] Past Medical History Surgical History (Updated 04/10/25 @ 13:22 by DIANE Blake) No pertinent past surgical history Family History Family History (Updated 04/10/25 @ 13:22 by DIANE Blake) Other Substance use disorder Social History Social History (Updated 04/10/25 @ 13:23 by LISA Blake Housing: House Alcohol intake: never Patient Tobacco Use Status: Never used Tobacco e-Cigarette/Vaping Use: Currently Using Second Hand Smoke Exposure: No Substance Use Type: Marijuana Advance Directives: No Advance Directives Information Provided: No Do you have a plan to hurt others: No Plan service: No Current occupational status: unemployed Cognitive needs: No Hearing needs: No Vision needs: Yes (Glasses) Physical Exam ED Vital Signs: Vital Signs - 24 hr 04/15/25 17:53 04/15/25 22:16 Temperature 97 F 97.9 F Pulse Rate 93 92 Respiratory Rate 18 17 Blood Pressure 115/60 135/65 Pulse Oximetry 98 98 Oxygen Delivery Method Room Air Room Air BMI result Body Mass Index 18.4 Const General: healthy appearing, comfortable, no acute distress, alert and awake Nutritional Appearance: thin Orientation/consciousness: patient oriented x3 HENMT Head: Yes normocephalic and Yes atraumatic Eyes Eyelids: Yes eyelids normal Conjunctivae: conjunctivae normal Sclerae: sclerae normal Corneas: corneas normal Pupils: Equal, round and reactive pupils present EOM: EOMs intact bilaterally Neck Neck: Yes full ROM Resp Effort & Inspection: normal respiratory effort, able to speak in complete sentences and not labored GI Inspection: No distended Palpation (GI): Soft to palpation, not firm, nontender, no guarding and not rigid Skin General skin exam: elasticity normal Neuro General: patient oriented x3 Cranial nerves: Yes Equal, round and reactive pupils present and Yes Bilaterally intact EOM present Cognition (Neuro): normal cognition Extrem Other: Moving all extremities well without any obvious deformities Course Course Course Narrative: Rapid medical examination performed in triage by Breann Marcum PA-C: Patient is a 19 year old female presenting to the emergency department with concerns of a graves flare. Patient states that she spoke with her PCP who wanted her to come to the ER to be evaluated for a possible grave's flare. Detailed physical exam and review of systems are deferred to the speech clinician. EKG, labs, swabs ordered. Patient placed back in the waiting room pending room availability and results. Medical Decision Making Medical Decision Making MDM Narrative: 19-year-old female presents for evaluation of fast heart rate. Her vital signs are within normal limits, she is not tachycardic. Her labs are reassuring, her TSH is undetectable but her T4 is elevated to 2.55. She is already appropriately treated with metoprolol and methimazole. She reports that she was referred to an senior financial reporting accountant and was able to talk them today but has not yet had an appointment. I do not see any indication to change her treatment plan at this time Differential Diagnosis Differential Diagnoses: The differential diagnosis associated with the presentation includes Hyperthyroidism Graves disease Anxiety Tachycardia Lab Data MDM Lab Attestation statement: I reviewed the patient's lab results. No leukocytosis or anemia. Normal platelet count. No electrolyte abnormalities warranting intervention. As above, before is elevated to 2.55 in the setting of the patient's known Graves disease 04/15/25 17:59 04/15/25 18:01 Labs: Lab Results 04/15/25 04/15/25 Range/Units 17:59 18:01 WBC 6.8 (4.8-10.8) X10*3/uL RBC 4.69 (4.20-5.50) X10*6/uL Hgb 14.1 (12.0-16.0) g/dl Hct 41.1 (37.0-47.0) % MCV 87.6 (80.0-98.0) fL MCH 30.1 (27.0-33.0) pg MCHC 34.3 (31.0-35.0) g/dl RDW 12.7 (11.0-16.0) % Plt Count 373 (160-400) X10*3/uL MPV 9.0 L (9.4-12.3) fL Immature Gran % (Auto) 0.1 (0.0-0.4) % Neut % (Auto) 43.9 L (45-73) % Lymph % (Auto) 42.7 H (20-40) % Nelson % (Auto) 10.7 (2-11) % Eos % (Auto) 2.3 (0-4) % Baso % (Auto) 0.3 (0-2) % Lymph # (Auto) 2.9 (1.2-4.9) X10*3/uL Nelson # (Auto) 0.7 (0.1-1.2) X10*3/uL Eos # (Auto) 0.2 (0.0-0.4) X10*3/uL Baso # (Auto) 0.0 (0.0-0.2) X10*3/uL Abs Immat Gran (auto) 0.01 (0.00-0.03) X10*3/uL Absolute Neuts (auto) 3.0 (2.0-8.3) x10*3/uL Absolute Nucleated RBC 0.000 (0.0-0.012) X10*3/uL Nucleated RBC % (auto) 0.0 (0.0-0.2) /100WBC Sodium 139 (135-145) mmol/L Potassium 4.4 (3.3-5.1) mmol/L Chloride 109 H (96-108) mmol/L Carbon Dioxide 22 (22-29) mmol/L Anion Gap 12 (12-20) BUN 11 (9-16) mg/dL Creatinine 0.52 (0.5-1.4) mg/dL Estim Creat Clear Calc 154.9 Estimated GFR > 60 Random Glucose 102 (60-115) mg/dL Calcium 10.2 D (8.4-10.2) mg/dL Magnesium 1.9 (1.6-2.6) mg/dL Total Bilirubin 0.2 (0.0-1.0) mg/dL AST 52 H (5-31) U/L ALT 80 H (0-31) U/L Alkaline Phosphatase 138 H (39-117) U/L Troponin I High Sens < 2.7 (<3.5-17.0) ng/L Total Protein 7.3 (6.5-8.0) g/dL Albumin 4.2 (3.5-5.0) g/dL TSH < 0.01 L (0.32-4.0) uIU/mL Free T4 2.55 H (0.71-1.85) ng/dL Influenza Type A (PCR) NEGATIVE (Negative) Influenza Type B (PCR) NEGATIVE (Negative) RSV RNA Qual (PCR) NEGATIVE (Negative) SARS-CoV-2 RNA (RT-PCR) NEGATIVE (Negative) Independent Interpretation I performed an independent interpretation of an: EKG Interpretation: Normal sinus rhythm with a rate of 91 beats minute. Discharge Plan Discharge Clinical Impression: Graves disease Patient Disposition: Home, Self-Care Instructions: Hyperthyroidism (ED) Additional Instructions: Your thyroid hormone level is elevated to 2.55. A normal level is 1.85. Continue the methimazole and metoprolol, follow up with your primary doctor and endocrinology when able Prescriptions: No Action olanzapine 2.5 mg tablet 2.5 mg PO BEDTIME Qty: 30 3RF hydroxyzine pamoate 25 mg capsule 25 mg PO BEDTIME Qty: 30 3RF metoprolol tartrate 25 mg tablet 25 mg PO BID Qty: 60 3RF Print Language: Nepalese
--- NOTE | 2025-04-15 17:56 | ECG_ITS ---
Test Reason : GRAVES Blood Pressure : */* mmHG Vent. Rate : 91 BPM Atrial Rate : 91 BPM P-R Int : 168 ms QRS Dur : 66 ms QT Int : 334 ms P-R-T Axes : 91 147 148 degrees QTcB Int : 410 ms Suspect limb lead reversal, interpretation assumes no reversal AGE AND GENDER SPECIFIC ECG ANALYSIS Normal sinus rhythm Lateral infarct , possibly acute ACUTE OR / STEMI Abnormal ECG No previous ECGs available Referred By: Breann Marcum Electronically Signed By:
[2025-04-15 18:13] LABS: MANUAL DIFF FLAG NO
[2025-04-15 18:14] LABS: Hematocrit 41.1 % (37.0-47.0); Hemoglobin 14.1 g/dl (12.0-16.0); Imm Gran Abs Auto 0.01 X10*3/uL (0.00-0.03); Imm Gran Pct Auto 0.1 % (0.0-0.4); Lymphocytes Absolute Auto 2.9 X10*3/uL (1.2-4.9); Mean Corpuscular HGB Conc 34.3 g/dl (31.0-35.0); Mean Corpuscular Hemoglobin 30.1 pg (27.0-33.0); Mean Corpuscular Volume 87.6 fL (80.0-98.0); NRBC Abs Auto 0.000 X10*3/uL (0.0-0.012); NRBC Pct Auto 0.0 /100WBC (0.0-0.2); Platelet Count 373 X10*3/uL (160-400); Red Blood Count 4.69 X10*6/uL (4.20-5.50); White Blood Count 6.8 X10*3/uL (4.8-10.8)
[2025-04-15 18:34] LABS: Alanine Aminotransferase 80 U/L (0-31); Albumin Level 4.2 g/dL (3.5-5.0); Alkaline Phosphatase 138 U/L (39-117); Anion Gap 12 (12-20); Aspartate Amino Transferase 52 U/L (5-31); Blood Urea Nitrogen 11 mg/dL (9-16); Calcium 10.2 mg/dL (8.4-10.2); Carbon Dioxide 22 mmol/L (22-29); Chloride 109 mmol/L (96-108); Creatinine Clr Calc Pharmacy 154.9; Estimated Glomerular Filt Rate > 60; Magnesium 1.9 mg/dL (1.6-2.6); Potassium 4.4 mmol/L (3.3-5.1); Sodium 139 mmol/L (135-145); Total Protein 7.3 g/dL (6.5-8.0)
[2025-04-15 18:45] LABS: Troponin-I High Sensitivity < 2.7 ng/L (<3.5-17.0)
[2025-04-15 19:04] LABS: Resp Syncy Virus RNA Qual PCR NEGATIVE (Negative); SARS COV2 PCR INHOUSE NEGATIVE (Negative)
[2025-04-15 20:46] LABS: Free T4 (Free Thyroxine) 2.55 ng/dL (0.71-1.85)
--- OUTSIDE RECORDS SUMMARY | 2025-04-15 21:46 | XMS_ITS | Encounter Summary ---
Author Organization [facility] Address [address] [place] [address] Phone Care Team Providers Care Cutter Helper Name Role Phone Unavailable Primary Care Provider Unavailabl e Encounter Details Date Type Department Care Team (Late st Contact Info) Description 11/04/2024 Telephone Pediatric And Adolescent Medicine - [place] [address] [place] [address] Clair Jhaveri MD [address] [place] [address] Social History Tobacco Use Types [...] No Lety Zacarias Note: 10/31/24 still has [facility] Pt needs to change insurance with [facility] first. 01/02/23 Pat's PCP doesn't accept [facility]. Gave [facility] new pt line to call and schedule [phone]. [facility] to [facility]. [place] had appts in June 2024. Pat to [...]
--- OUTSIDE RECORDS SUMMARY | 2025-04-15 21:46 | XMS_ITS | Encounter Summary ---
Author Organization [facility] Address [address] [place] [address] Phone Care Team Providers Care Dental Assistant Name Role Phone Unavailable Primary Care Provider Unavailabl e Encounter Details Date Type Department Care Team (Late st Contact Info) Description 11/24/2010 Conversion Encounter Pediatric And Adolescent Medicine - [address] [address] Social History Tobacco Use Types Packs/Day Years [...]
--- OUTSIDE RECORDS SUMMARY | 2025-04-15 21:46 | XMS_ITS | Encounter Summary ---
Author Organization [facility] Address [address] [place] [address] Phone Care Team Providers Care Erection Shop Supervisor Name Role Phone Unavailable Primary Care Provider Unavailabl e Reason for Visit * Reason Onset Date Comments ED record review - ADMIT to PICU 01/04/2025 Encounter Details Date Type Department Care Team (Late st Contact Info) Description 01/04/2025 Telephone Pediatric And Adolescent Medicine - [place] [address] [place] [address] Clair Jhaveri MD [address] [place] [address] ED record review - ADMIT to PICU [...] 01/02/23 Pat's PCP doesn't accept [facility]. Gave [facility] new pt line to call and schedule [phone]. [facility]. [place] had appts in June 2024. Pat to [...]
--- OUTSIDE RECORDS SUMMARY | 2025-04-15 21:46 | XMS_ITS | Encounter Summary ---
Author Organization [facility] Address [address] [place] [address] Phone Care Team Providers Care Historiography Professor Name Role Phone Unavailable Primary Care Provider Unavailabl e Reason for Visit * Reason Comments Med Refill Encounter Details Date Type Department Care Team (Late st Contact Info) Description 11/03/2024 Refill Pediatric And Adolescent Medicine - [address] [address] Clair Jhaveri MD [address] [place] [address] Dysmenorrhea Social History Tobacco Use Types Packs/Day [...] Anasty???s: Naproxen 275 mg Refill request source: [employer] This medication was last refilled on 09/14/24. Last medication check or well visit: 09/07/23 Next appointment scheduled on none. An office visit is not recommended. If visit recommended, message sent to appointment pool. [facility] - [place], [place] - [address] [facility] [address] [id number] [place] - [address] [facility] [address] PCP: Clair hJaveri MD documented in this encounter Plan of Treatment Not on file documented as of this encounter Goals Goal Patient Goal Type Associated Problems Recent Progress Patient-Stated? Author Transition to adult provider Lifestyle Lety Murillo Note: 10/31/24 still has [facility] Pt needs to change insurance with [facility] first. 01/02/23 Pat's PCP doesn't accept [facility]. Gave [facility] new pt line to call and schedule [phone]. [facility] to [facility] to [facility]. [...]
--- OUTSIDE RECORDS SUMMARY | 2025-04-15 21:46 | XMS_ITS ---
Care Plan Created on: April 15, 2025 Neal Valles : 2005 Sex: Female Author Organization [facility] Address [address] [place] [id number] Phone Care Team Providers Care Recording Studio Set Up Worker Name Role Phone Unavailable Primary Care Provider Unavailabl e Active Problems Patient Care Coordination No te Formatting of this note migh t be different from the original. Therapist- Tereza Kim [phone] IHT- Clair and Yue Problem Noted Date Diagnosed Date Generalized anxiety disorder 07/08/2023 Deliberate self-cutting 10/21/2021 Severe episode of recurrent major depressive disorder, without psychotic features 10/21/2021 Anorexia nervosa 09/03/2021 Overview (06/15/2023): Initial Dr. Andrews appt 04/08/23. Pt seen for phos supplementation for the following few days. At recheck visit on 04/12 - pt found to be down more wt, admitted to [facility] on 06/13 for medical stabilization. Pt was both restricting calories as well as purging. At time of [facility] admit, pt had low phos that needed stabilizing. Assessment & Plan (08/17/2023 11:05 PM EDT): Pt had been stable and regained wt, holding at her previous wt and generally seemed in a good place upon re-entry to school. Now is sliding back into old behaviors, wt is down 2# from a month ago. Will contact [facility] Eating disorder program. Assessment & Plan (06/15/2023 4:29 PM EST): Pt completed inpt stay at [facility] then did inpatient at [place] 04/19-05/07/23. She was transitioned to [facility] from home - that lasted until 06/08. [...] did PHP 02/05. Currently receiving meds through [facility] on Prazosin and Sertraline. Has 2 [...] 01/02/23 Pat's PCP doesn't accept [facility]. Gave [facility] new pt line to call and schedule [phone]. Need to change [facility] to [facility]. [facility] had appts in June 2024. Pat to [...]
--- OUTSIDE RECORDS SUMMARY | 2025-04-15 21:46 | XMS_ITS | Clinical Summary ---
Author Organization [facility] Address [address] [place] [id number] Phone Care Team Providers Care Nitroglycerin Distributor Name Role Phone Unavailable Primary Care Provider [...] different from the original. Therapist- Tereza Kim [phone] IHT- Clair and Yue Problem Noted Date Diagnosed Date Generalized anxiety disorder 07/08/2023 Deliberate self-cutting 10/21/2021 Severe episode of recurrent major depressive disorder, without psychotic features 10/21/2021 Anorexia nervosa 09/03/2021 Overview (06/15/2023): Initial Dr. Andrews appt 04/08/23. Pt seen for phos supplementation for the following few days. At recheck visit on 04/12 - pt found to be down more wt, admitted to [facility] on 06/13 for medical stabilization. Pt was both restricting calories as well as purging. At time of [facility] admit, pt had low phos that needed stabilizing. Assessment & Plan (08/17/2023 11:05 PM EDT): Pt had been stable and regained wt, holding at her previous wt and generally seemed in a good place upon re-entry to school. Now is sliding back into old behaviors, wt is down 2# from a month ago. Will contact [facility] Eating disorder program. Assessment & Plan (06/15/2023 4:29 PM EST): Pt completed inpt stay at [facility] then did inpatient at [place] 04/19-05/07/23. She was transitioned to [facility] from home - that lasted until [...] did PHP 02/05. Currently receiving meds through [facility] on Prazosin and Sertraline. Has 2 therapists. Recurrent major depressive d isorder, in partial remission 01/10/2019 02/04/2020 Encounters Date Type Department Care Team Description 03/05/2025 Erroneous Telephone Encounter [facility] - [address] [address] Clair Jhaveri MD 02/01/2025 5:51 PM EDT - 02/01/2025 6:46 PM EDT Emergency [facility] - Patient Ping from Last 3 [...] 01/02/23 Pat's PCP doesn't accept [facility]. Gave [facility] new pt line to call and schedule [phone]. Need to [facility]. [facility] had appts in June 2024. Pat to [...] No Rell, Lety Procedures * Due to [place] [employer] law, this organization might not be sharing sensitive test results. Procedure Name Priority Date/Time Associated Diagnosis Comments CHLAMYDIA AND GONORRHEA, AMPLIFIED Routine 09/07/2023 3:15 PM EDT Routine screening for STI (sexually transmitted infection) from Last 3 Months or Most Recently Relevant to Health Maintenance Results * Due to [facility] law, this organization might not be sharing sensitive test results. * Chlamydia and Gonorrhoea, Amplified (09/07/2023 3:15 PM EDT) C trach MANNIE Negative Negative [facility] N gonorrhoeae MANNIE Negative Negative [facility] Urine (Urine) 09/07/2023 3:1 5 PM EDT 09/07/2023 Comment:Urine URINE Narrative [facility] - 09/09/2023 9:08 AM EDT Performed at: 01 - [facility] [address], [address], [place], [place] [id number] Simulation Tech: Colten Ruiz MD, Phone: [phone] Clair Jhaveri MD LAB MICROBIOLOGY - GENERAL ORDER KHALIF Final Result Performing Organization Address City/State/[facility] Co de Phone Number [facility] [address] [place] [address] from Last 3 Months or Most Recently Relevant to Health Maintenance Additional Health Concerns Active Problems Noted Date Diagnosed Date Patient/caregiver requires a [facility]istnace [facility] appointments 04/21/2022 Patient needs to connect with adult PCP 12/08/19 24
[2025-04-15 22:16] VITALS: BP 135/65; PULSE 92; RESP 17; TEMP 36.6; O2SAT 98
[2025-04-15 22:27] VITALS: BP 135/65; PULSE 92; RESP 17; TEMP 36.6; O2SAT 98
--- NOTE | 2025-04-15 22:35 | PC.NURSE ---
reviewed discharge instructions with pt. pt verbalized understanding, no sign of distressed.
== END 2025-04-15 22:27 | disposition home or self-care (01) ==
PROVIDERS: Physician Assistant Medical; Emergency Provider Emergency Medicine
DX: E05.00 Thyrotoxicosis with diffuse goiter without thyrotoxic crisis or storm (principal); R94.31 Abnormal electrocardiogram [ECG] [EKG]; Z03.818 Encounter for observation for suspected exposure to other biological agents ruled out; Z79.899 Other long term (current) drug therapy
CPT/HCPCS: 80053; 83735; 84439; 84443; 84484; 85025; 87637; 93005; 99284